=== PATIENT | female | born 1980 | race Caucasian/White ===

== ENCOUNTER → 2016-12-20 | Outpatient (CLI) | payer BC ==
--- NOTE | 2016-12-21 15:00 | RAD ---
DATE: 12/21/2016 EXAM: MAMMO CHIQUITA SCREENING BILATERAL HISTORY: Bilateral breast implants. Astigmatic screening mammogram. COMPARISON: Prior mammograms from 12/27/2014 This study was interpreted with the benefit of Computerized Aided Detection (CAD). The breast parenchyma is dense, which could reduce the sensitivity of mammography. Breast parenchyma level density D. FINDINGS: Bilateral CC and MLO views of the breasts were performed with standard implant and implant displaced views. Bilateral breast tomosynthesis was performed in CC and MLO projections. Bilateral retropectoral saline implants are present. Right breast: There are no suspicious microcalcifications, masses or areas of architectural distortion. Left breast: There are no suspicious microcalcifications, masses or areas of architectural distortion. Findings are stable from prior mammogram. IMPRESSION: Negative bilateral kidney and 3-D mammogram. Recommend annual screening mammography. BI-RADS CATEGORY: 1 NEGATIVE RECOMMENDED FOLLOW-UP: 12M 12 MONTH FOLLOW-UP PQRS compliance statement: Patient information was entered into a reminder system with a target due date 12/20/2017 for the next mammogram. Mammography is a sensitive method for finding small breast cancers, but it does not detect them all and is not a substitute for careful clinical examination. A negative mammogram does not negate a clinically suspicious finding and should not result in delay in biopsying a clinically suspicious abnormality. "Our facility is accredited by the [employer] Mamm[employer]."
== END | disposition home or self-care (01) ==
LOC: MAMMO 15:02
PROVIDERS: ATTEND Obstetrics & Gynecology
DX: Z12.31 Encounter for screening mammogram for malignant neoplasm of breast (principal); Z98.82 Breast implant status
CPT/HCPCS: 77063; G0202; 77067

== ENCOUNTER → 2017-12-23 | Outpatient (CLI) | payer BC ==
--- NOTE | 2017-12-23 14:00 | RAD ---
DATE: 12/23/2017 EXAM: MAMMO CHIQUITA SCREENING BILATERAL HISTORY: Routine screening COMPARISON: 12/20/2016 This study was interpreted with the benefit of Computerized Aided Detection (CAD). Breast Density: DENSE The breast parenchyma is dense, which could reduce the sensitivity of mammography. Breast parenchyma level density D. FINDINGS: Routine and implant exclusion 2-D views of both breasts were obtained in CC and MLO projections. 3-D tomosynthesis implant exclusion views were also obtained. The breast implants appear unchanged. The breast tissues are extremely dense. No mass or suspicious microcalcifications are seen. IMPRESSION: Stable mammograms without evidence of malignancy. BI-RADS CATEGORY: 2 BENIGN FINDING(S) RECOMMENDED FOLLOW-UP: 12M 12 MONTH FOLLOW-UP PQRS compliance statement: Patient information was entered into a reminder system with a target due date for the next mammogram. Mammography is a sensitive method for finding small breast cancers, but it does not detect them all and is not a substitute for careful clinical examination. A negative mammogram does not negate a clinically suspicious finding and should not result in delay in biopsying a clinically suspicious abnormality. "Our facility is accredited by the [employer] Mammography [employer]."
== END | disposition home or self-care (01) ==
LOC: MAMMO 09:49
PROVIDERS: ATTEND Obstetrics & Gynecology
DX: Z12.31 Encounter for screening mammogram for malignant neoplasm of breast (principal)
CPT/HCPCS: 77063; 77067

== ENCOUNTER → 2019-01-23 | Outpatient (CLI) | payer BC ==
--- NOTE | 2019-01-24 18:39 | RAD ---
3d digital tomography [bilateral] History: Routine screening Technique: Bilateral 3d digital tomographic views were obtained and reviewed on a workstation. In addition, CAD - computer aided detection was utilized. Implant displaced and nondisplaced views were generated. Comparison: Most recently on 12/23/2017 Findings: Breast Tissue Density D : The breast tissue is predominantly dense. Scattered fibroglandular elements may obscure underlying pathology. Bilateral saline implants are intact. No newly seen mass, architectural distortion or suspicious microcalcifications throughout either breast. Impression: No significant interval change. BI-RADS Category 1: Negative. Normal interval followup. The patient will receive a letter with the results in the mail. Your mammogram demonstrates that you have dense breast tissue, which could hide abnormalities, and if you have other risk factors for breast cancer that have been identified, you might benefit from supplemental screening tests that may be suggested by your ordering physician. Dense breast tissue, in and of itself, is a relatively common condition. This information is not provided to cause undue concern, but rather to raise your awareness and to promote discussion with your physician regarding the presence of other risk factors, in addition to dense breast tissue. A report of your mammography results will be sent to you and your physician. You should contact your physician if you have any questions or concerns regarding this report. Patient information is entered into the system with a target due date for the next screening mammogram. The patient will receive a reminder. "Our facility is accredited by the [employer] Mammography [employer]."
== END | disposition home or self-care (01) ==
LOC: MAMMO 10:52
PROVIDERS: ATTEND Internal Medicine
DX: Z12.31 Encounter for screening mammogram for malignant neoplasm of breast (principal)
CPT/HCPCS: 77063; 77067

== ENCOUNTER → 2020-03-07 | Outpatient (CLI) | payer OTHER ==
--- NOTE | 2020-03-07 09:26 | RAD ---
EXAM: Bilateral digital screening mammogram with tomosynthesis. HISTORY: 40-year-old female presents for screening mammography. TECHNIQUE: Full-field digital craniocaudal and mediolateral oblique 2D and 3D tomosynthesis images of both breasts are obtained for evaluation. Computer aided detection was applied. COMPARISON: 01/23/2019 and 12/23/2017 BREAST PARENCHYMAL DENSITY: Level D - Extremely dense. FINDINGS: There is no new suspicious mass, microcalcification or region of architectural distortion. There are stable pleural breast implants. IMPRESSION: BI-RADS Category 2: Benign finding(s). RECOMMENDATION: Annual mammography is recommended. If your mammogram demonstrates that you have dense breast tissue, which could hide abnormalities, and if you have other risk factors for breast cancer that have been identified, you might benefit from s upplemental screening tests that may be suggested by your ordering physician. Dense breast tissue, i n and of itself, is a relatively common condition. This information is not provided to cause undue c oncern, but rather to raise your awareness and to promote discussion with your physician regarding th e presence of other risk factors, in addition to dense breast tissue. A report of your mammography re sults will be sent to you and your physician. You should contact your physician if you have any ques tions or concerns regarding this report. Mammography is a sensitive method for finding small breast cancers, but it does not detect them all a nd is not a substitute for careful clinical examination. A negative mammogram does not negate a clin ically suspicious finding and should not result in delay in biopsying a clinically suspicious abnorma lity. PQRS compliance statement - Patient information was entered into a reminder system with a target due date for the next mammogram. "Our facility is accredited by the [employer] Mammography [employer]." Electronically signed by: Mariana Fulton MD (03/07/2020 9:24 AM) [id number]
== END ==
LOC: MAMMO 08:48
PROVIDERS: ATTEND Obstetrics & Gynecology
DX: Z12.31 Encounter for screening mammogram for malignant neoplasm of breast (principal)
CPT/HCPCS: 77063; 77067

== ENCOUNTER → 2021-04-16 | Outpatient (CLI) | payer OTHER ==
--- NOTE | 2021-04-16 12:34 | RAD ---
Bilateral digital screening 2-D and 3-D (tomosynthesis) mammogram: Reason for examination: Routine screening. Comparison is made to previous mammograms from 03/07/2020 and 01/23/2019. Correlation is made with the left breast ultrasound from 12/16/2015. Bilateral mammograms in CC and oblique projections were obtained with 2-D imaging and 3-D tomosynthes is imaging and reviewed on the workstation. Interpretation was made with the benefit of CAD. Findings: Breast density: Category D. The breasts are extremely dense which lowers sensitivity of mammography. The retropectoral silicone breast implants are unremarkable. Right: There are is a 1 cm oval circumscribed mass in the approximately 7 o'clock position 1 cm from the nipple. There is a 5 mm oval circumscribed mass 9:00 position, about 1.5 cm from the nipple.There are no malignant appearing calcifications or architectural distortion. Left: There is a 5 mm oval circumscribed mass 12:00 position only seen on the CC images. No suspiciou s calcifications or architectural distortion is seen. Impression: There are small masses in the right breast at 9:00 and 7:00. These are not definitely seen on previou s exams. One small mass is seen in the left breast which likely correlates with the cyst or lymph nod e seen on prior ultrasound. Further evaluation with the targeted right breast ultrasound is recommend ed. ASSESSMENT: BI-RADS 0. Incomplete. Recommendations: Targeted right breast ultrasound. This patient's information has been entered into a reminder system for the patient to be notified wit h the results of her examination and a target date for the next mammogram. Your patient's mammogram demonstrates that she has dense breast tissue (breast density category C or D), which could hide abnormalities, and if she has other risk factors for breast cancer that have bee n identified, she might benefit from supplemental screening tests that may be suggested by you as her ordering physician. Dense breast tissue, in and of itself, is a relatively common condition. Therefo re, this information is not provided to cause undue concern, but rather to raise your awareness and t o promote discussion with your patient regarding the presence of other risk factors, in addition to d ense breast tissue. Electronically signed by: Maisha Brown MD (04/16/2021 12:32 PM) [id number]
== END ==
LOC: MAMMO 11:28
PROVIDERS: ATTEND Internal Medicine
DX: R92.8 Other abnormal and inconclusive findings on diagnostic imaging of breast (principal); Z12.31 Encounter for screening mammogram for malignant neoplasm of breast
CPT/HCPCS: 77063; 77067

== ENCOUNTER → 2021-04-28 | Outpatient (CLI) | payer OTHER ==
--- NOTE | 2021-04-28 15:41 | RAD ---
DIAGNOSTIC RIGHT BREAST ULTRASOUND INDICATION: Call back for right breast asymmetries COMPARISON: 04/16/2021, 03/07/2020 FINDINGS: There is a right breast implant. In the right breast tissue, there are multiple cysts identified incl uding 7:00 position 1 cm from the nipple measuring 1.8 x 0.3 x 1.4 cm and 9:00 position 2 cm from the nipple 0.5 x 0.4 x 0.2 cm. IMPRESSION: 1. Benign right breast cysts. ASSESSMENT: BI-RADS 2: Benign. RECOMMENDATION: Routine annual screening mammogram. The facility will notify the patient of the results via mail. Patient information will be entered int o the mammography reminder system with a target recall date for the next mammogram. A reminder letter will be generated by the facility. Electronically signed by: Yehuda Rizzo MD (04/28/2021 3:39 PM) [id number]
== END ==
LOC: US 14:39
PROVIDERS: ATTEND Internal Medicine
DX: N60.01 Solitary cyst of right breast (principal)
CPT/HCPCS: 76642